=== PATIENT | female | born 1980 | race African-American/Black ===

== ENCOUNTER 2019-08-17 09:36 | Emergency (ER) | payer SELFPAY ==
[2019-08-17 09:58] VITALS: BP 109/85
--- NOTE | 2019-08-17 12:55 | XRay Report ---
CHEST PA AND LATERAL VIEWS INDICATION: cough. COMPARISON: None FINDINGS: Support devices: None Heart: Normal Lungs/Pleura: No acute pulmonary or pleural findings. IMPRESSION: 1. No significant abnormality. Signer Name: Drew Mehta MD Signed: 08/17/2019 12:51 PM Workstation Name: [id number]
--- NOTE | 2019-08-17 13:27 | Emergency Department Report ---
Upper Respiratory HPI - HPI Chief Complaint: Upper Respiratory Infection Stated Complaint: CHECK FOR VIRUS Time Seen by Provider: 08/17/19 11:38 Duration: 1 week URI Symptoms: Rhinorrhea: Yes, Sore Throat: No, Ear Pain: No, Cough: No, Shortness of Breath: No, Sick Contacts: No, Unable to Take Fluids: No, Urine Output Abnormal: No, Listless Behavior: No Other History: This is a 39-year-old female nontoxic, well nourished in appearance, no acute signs of distress presents to the ED with c/o of rhinnorrhea and subjective fever x1 week. Patient stated she has just returned from [place] on and is concerned about CoronaVirus. Patient denies any cough. Patient denies any contact. Denies any contact with something having coronavirus. Denies being in [place]. Patient denies any recent travels, long car, recent hospital stays. Patient denies any calf pain or calf tenderness. Patient denies any chest pain, short of breath, chills, nausea, vomiting, hemoptysis, numbness, tingling, headache or stiff neck. Patient denies any allergies or PMH. - Home Meds and Allergies Allergies/Adverse Reactions: Allergies Allergy/AdvReac Type Severity Reaction Status Date / Time No Known Allergies Allergy Unverified 08/17/19 09:58 ED Review of Systems ROS: Stated complaint: CHECK FOR VIRUS Other details as noted in HPI Constitutional: fever. denies: chills Eyes: denies: eye pain, eye discharge, vision change ENT: denies: ear pain, throat pain Respiratory: denies: cough, shortness of breath, wheezing Cardiovascular: denies: chest pain, palpitations Endocrine: no symptoms reported Gastrointestinal: denies: abdominal pain, nausea, diarrhea Genitourinary: denies: urgency, dysuria, discharge Musculoskeletal: denies: back pain, joint swelling, arthralgia Skin: denies: rash, lesions Neurological: denies: headache, weakness, paresthesias Psychiatric: denies: anxiety, depression Hematological/Lymphatic: denies: easy bleeding, easy bruising ED Past Medical Hx - Past Medical History Previous Medical History?: No - Surgical History Past Surgical History?: No - Social History Smoking Status: Never Smoker Substance Use Type: None ED Bronchiolitis Physical Exam - Exam General: Vital signs noted. No distress. Alert and acting appropriately. HEENT: No Pharyngeal Erythema, No Conjuctival Injection, No Dry Mucous Membranes, No Rhinorrhea Ear: Neither TM Bulge, Neither TM Erythema, Neither EAC Discharge Neck: No Adenopathy, No Rigidity Lungs: Yes Clear Lung Sounds, Yes Good Air Exchange, No Wheezes, No Stridor, No Cough, No Nasal Flaring, No Retractions, No Use of Accessory Muscles Heart: Yes Regular, No Murmur Abdomen: Yes Normal Bowel Sounds, No Tenderness, No Peritoneal Signs Skin: No Rash, No Eczema Neurologic: Alert and oriented, no deficits. Musculoskeletal: Unremarkable. ED Bronchiolitis Tests - Testing Testing: CXR: Normal/Negative ED Physical Exam - General Limitations: No Limitations ED Course Vital Signs 08/17/19 09:36 Temperature 97.8 F Pulse Rate 107 H Respiratory 16 Rate Blood Pressure 109/85 O2 Sat by Pulse 98 Oximetry - Reevaluation(s) Reevaluation #1: 08/17/19 13:25 Patient is speaking in full sentences with no signs of distress noted. - Consultations Consultation #1: 08/17/19 13:25 Patient has been consulted with Jaydon ([facility]) about patient history and physical exam and stated patient does not have anterior for PUI or coronavirus. ED Medical Decision Making - Medical Decision Making This is a 39-year-old female that presents with subjective fever. Patient is stable and was examined by me. Patient was consulted with [facility] and patient does not meet return here for possible coronavirus. Also, after reviewing flowchart from [facility] for coronavirus, patient does not meet coronavirus criteria. Chest x- ray has been obtained and dictated by radiologist with normal exam. Patient is notified of x-ray results with no questions noted. Patient was instructed Follow-up with a primary care doctor in 3-5 days or if symptoms worsen and c ontinue return to emergency room as soon as possible. At time time of discharge, the patient does not seem toxic or ill in appearance. No acute signs of distress noted. Patient agrees to discharge treatment plan of care. No further questions noted by the patient. Critical care attestation.: If time is entered above; I have spent that time in minutes in the direct care of this critically ill patient, excluding procedure time. ED Disposition Clinical Impression: General medical exam Disposition: DC-01 TO HOME OR SELFCARE Is pt being admited?: No Does the pt Need Aspirin: No Condition: Stable Additional Instructions: Follow-up with a primary care doctor in 3-5 days or if symptoms worsen and continue return to emergency room as soon as possible. Referrals: DELFINO FRASER MD [Primary Care Provider] - 3-5 Days PRIMARY CAREMD [Referring] - 3-5 Days WILMER WILLIAMSON MD [Staff Physician] - 3-5 Days [facility] [Outside] - 3-5 Days Forms: Work/School Release Form(ED)
== END 2019-08-17 14:06 | disposition home or self-care (01) ==
LOC: ED 09:36
DX: J34.89 Other specified disorders of nose and nasal sinuses (principal); R50.9 Fever, unspecified
CPT/HCPCS: 71046; 99283